=== PATIENT | male | born 1970 | race Caucasian/White ===

== ENCOUNTER → 2020-11-16 | Outpatient (CLI) | payer BC ==
[~2020-11-16] MED LIST: ASPIRIN CHEWABL81 MG PO; CARAFATE1 GM PO; FISH OIL + D31 EACH PO; FOLTX TABLET1 EACH PO; K-DUR TAB 10 M10 MEQ PO; LOPRESSOR50 MG PO; NORVASC10 MG PO; OMEPRAZOLE20 MG PO; PROTONIX40 MG PO; VITAMIN D-32000 UNIT PO; VOLTAREN EC 7575 MG PO
== END ==
LOC: EXRD 11-02 11:30
DX: N50.82 Scrotal pain (principal); I86.1 Scrotal varices
CPT/HCPCS: 76870